=== PATIENT | female | born 1935 | race Caucasian/White ===

== ENCOUNTER 2017-04-27 07:05 | Emergency (ER) | payer MEDICARE ==
[2016-11-26 08:15] VITALS: BMI 38.8
[~2017-04-27 07:05] MED LIST: ANASTROZOLE1 MG PO; DIOVAN HCT 160/1 TA1 PO; FISH OIL 1,0001 CA1 PO; FLUTICASONE PRO16 GM NASAL; HYDROCODONE-APA1 TAB; K-TAB10 MEQ PO; KENALOG 0.1 % O15 GM; MAGNESIUM GLUC500 M1 PO; NEXIUM40 MG PO; NORVASC10 MG PO; SYNTHROID112 MCG PO; ULORIC40 MG PO
== END 2017-04-27 08:14 | disposition home or self-care (01) ==
LOC: D.ER 07:05
DX: M17.11 Unilateral primary osteoarthritis, right knee (principal); M71.21 Synovial cyst of popliteal space [Baker], right knee

== ENCOUNTER → 2017-07-28 17:02 | Outpatient (CLI) | payer MEDICARE ==
[2016-11-26 08:15] VITALS: BMI 38.8
== END | disposition home or self-care (01) ==
LOC: D.MAMMO 10:30
DX: Z85.3 Personal history of malignant neoplasm of breast (principal)

== ENCOUNTER → 2018-01-27 15:47 | Outpatient (CLI) | payer MEDICARE ==
[2016-11-26 08:15] VITALS: BMI 38.8
[~2018-01-27 15:47] MED LIST changes: +ELIQUIS2.5 MG PO; +HYDROCODONE-APA1 TAB PO
== END | disposition home or self-care (01) ==
LOC: D.LABREF 15:47
DX: M17.11 Unilateral primary osteoarthritis, right knee (principal); Z11.8 Encounter for screening for other infectious and parasitic diseases

== ENCOUNTER → 2018-01-27 16:56 | Outpatient (CLI) | payer MEDICARE ==
[2016-11-26 08:15] VITALS: BMI 38.8
== END | disposition home or self-care (01) ==
LOC: D.MAMMO 09:00
DX: R92.8 Other abnormal and inconclusive findings on diagnostic imaging of breast (principal)

== ENCOUNTER 2018-02-02 10:00 | Inpatient (IN) | payer MEDICARE ==
[~2018-02-02] VITALS: Ht 172.7 cm; Wt 113.6 kg
--- NOTE | ~2018-02-02 | OP ---
PATIENT NAME: HARSHA RICH MEDICAL RECORD: [id number] :37 LOCATION:[id number] ADMISSION DATE:02/07/18 SURGEON: YADIEL RIBERA MD DATE OF OPERATION: 02/07/2018 PREOPERATIVE DIAGNOSIS: Degenerative arthritis, right knee. POSTOPERATIVE DIAGNOSIS: Degenerative arthritis, right knee. PROCEDURE: Right total knee arthroplasty. SURGEON: Yadiel Ribera MD ANESTHESIA: General. INTRAOPERATIVE COMPLICATIONS: None. SUMMARY OF PATHOLOGIC FINDINGS: The patient was indeed found to have extensive tricompartmental osteoarthritis consistent with the preoperative diagnosis. OPERATIVE SUMMARY IN DETAIL: After obtaining the appropriate preoperative orthopedic surgery consent as well as anesthetic consultation, evaluation and clearance, the patient was brought to the operating room and placed on the operating table in supine position. After general laryngeal mask airway was administered, tourniquet was placed about the proximal aspect of the right lower extremity. Right lower extremity was then prepped and draped in routine sterile fashion. The leg was elevated and exsanguinated, tourniquet inflated to 350 mmHg. Midline incision was taken down for a paramedian arthrotomy. The paramedian arthrotomy was performed. Patella was everted, distal femur was exposed. Soft tissue excision was done in the usual fashion. Intramedullary guide hole was created for distal femoral intramedullary guided cuts. Having completed this, the entire proximal tibia was exposed. Again, soft tissue excision was done in the usual fashion. Intramedullary guide hole was created for intramedullary-guided cut along the proximal tibia. The cut was then made, balance was checked, sizes were taken and chamfer cuts were made on the distal femur. A size 5 cruciate retaining distal femur trial was then put into place with good fit and fill. Final proximal tibial and distal femoral preparations were made. Size 5 cruciate retaining trial was put into place with the size 5 baseplate and a size 9 trial poly. This was taken through range of motion and final adjustments were made and this felt to be appropriate. Having completed this, the arthritic surface of the patella was excised and preparations were made for a size 9 x 31 patella. At this point, copious pulsatile lavage irrigation was utilized to completely evacuate the cavity of all debris. Bone ends were dried. Final components were cemented into place. All excess cement was removed. After the cement was allowed to harden, the knee was taken through range of motion and found to be stable in all planes. At this point, RT Vitagel from [employer] was deployed into the entire cavity. The paramedian arthrotomy was closed with #2 Ethibond followed shortly by #1 Vicryl, 2-0 Vicryl and skin ramses. Sterile dressings were applied. The patient was awakened and taken to recovery room in stable condition. All final needle and sponge counts were correct. TRANSINT:[id number] Voice Confirmation ID: [id number] DOCUMENT ID: [id number] OPERATIVE REPORT [id number] HARSHA RICH MD, YADIEL CUMMINGS at 1601 CC: [id number] DICTATION DATE: 02/10/18935 YARD OPERATOR: 02/10/18 1133 DIS IN 02/10/18 [facility] [address] [place] [address]
[~2018-02-02 10:00] MED LIST changes: -ELIQUIS2.5 MG PO; -HYDROCODONE-APA1 TAB PO
[2018-02-02 11:30] LABS: BASOPHILS 0.3 % (0-2); EOSINOPHILS 0.6 % (0-7); HEMATOCRIT 38.4 % (36.0-48.0); HEMOGLOBIN 12.1 g/dL (12-16); IMMATURE GRANULOCYTES 0.4 % (0-5); LYMPHOCYTES 14.9 % (15-50); MCH 25.1 pg (26.0-34.0); MCHC 31.5 g/dL (31.0-37.0); MCV 79.7 fL (80.0-100.0); MEAN PLATELET VOLUME 8.7 fL (7.4-10.4); MONOCYTES 9.3 % (2-11); NEUTROPHILS 74.5 % (40-80); RBC 4.82 10x6/uL (4.00-5.40); RDW 15.5 % (11.5-14.5); WBC 11.4 10x3/uL (4.8-10.8)
[2018-02-02 11:33] LABS: PLATELET COUNT 320 10x3/uL (130-400)
[2018-02-02 11:35] LABS: APPEARANCE CLEAR (CLEAR); BILIRUBIN NEGATIVE (NEGATIVE); COLOR YELLOW (YELLOW); GLUCOSE NEGATIVE (NEGATIVE); KETONE NEGATIVE (NEGATIVE); NITRITE NEGATIVE (NEGATIVE); PROTEIN NEGATIVE (NEGATIVE); UROBILINOGEN NORMAL (NORMAL)
[2018-02-02 11:38] LABS: APTT 36.9 SECONDS (22.8-39.4); PROTIME 12.8 SECONDS (11.6-15.0)
[2018-02-02 11:42] LABS: ANION GAP 17.9 mmol/L (8-16); CALCIUM 9.6 mg/dL (8.5-10.1); CREATININE - SERUM 1.1 mg/dL (0.6-1.3); POTASSIUM - SERUM 3.9 mmol/L (3.5-5.1)
[2018-02-07 07:52] VITALS: BP 160/76; BMI 38.1
[2018-02-07 15:50] VITALS: Ht 172.7 cm; Wt 113.6 kg
[2018-02-07 20:44] VITALS: BP 118/48
[2018-02-08 00:44] VITALS: BP 134/64
[2018-02-08 04:30] VITALS: BP 154/69
[2018-02-08 06:36] LABS: HEMATOCRIT 30.6 % (36.0-48.0); HEMOGLOBIN 9.4 g/dL (12-16); MCH 24.3 pg (26.0-34.0); MCHC 30.7 g/dL (31.0-37.0); MCV 79.1 fL (80.0-100.0); MEAN PLATELET VOLUME 8.9 fL (7.4-10.4); RBC 3.87 10x6/uL (4.00-5.40); RDW 15.5 % (11.5-14.5); WBC 9.4 10x3/uL (4.8-10.8)
[2018-02-08 08:19] VITALS: BP 160/63
[2018-02-08 11:47] VITALS: BP 124/56
[2018-02-08 16:03] VITALS: BP 128/58
[2018-02-08 22:18] VITALS: BP 145/54
[2018-02-09 01:28] VITALS: BP 165/69
[2018-02-09 04:29] VITALS: BP 151/66
[2018-02-09 06:27] LABS: HEMATOCRIT 29.2 % (36.0-48.0); MCH 24.3 pg (26.0-34.0); MCHC 30.8 g/dL (31.0-37.0); MCV 78.9 fL (80.0-100.0); MEAN PLATELET VOLUME 8.9 fL (7.4-10.4); RBC 3.7 10x6/uL (4.00-5.40); RDW 15.7 % (11.5-14.5); WBC 10.5 10x3/uL (4.8-10.8)
[2018-02-09 09:16] VITALS: BP 137/58
[2018-02-09 12:38] VITALS: BP 123/56
[2018-02-09 16:10] VITALS: BP 131/49
[2018-02-09 21:09] VITALS: BP 156/64
[2018-02-10 01:38] VITALS: BP 149/60
[2018-02-10 04:42] VITALS: BP 158/68
[2018-02-10] MEDS ORDERED: ELIQUIS2.5 MG PO (08:50)
[2018-02-10] MEDS ORDERED: HYDROCODONE-APA1 TAB PO (08:50)
[2018-02-10 09:37] VITALS: BP 138/47
[2018-02-10 12:20] VITALS: BP 127/48
== END 2018-02-10 13:31 | DRG 470 ==
LOC: D.MS 02-07 07:00 → D.SDCHOLD 02-07 07:00 → D.MS 02-07 14:21
PROVIDERS: Orthopaedic Surgery
PROC: 0SRC0J9 Replacement of Right Knee Joint with Synthetic Substitute, Cemented, Open Approach (ICD-10-PCS; principal; 2018-02-07 10:15)
DX: M17.11 Unilateral primary osteoarthritis, right knee (principal); D62 Acute posthemorrhagic anemia; I10 Essential (primary) hypertension; E03.9 Hypothyroidism, unspecified; K21.9 Gastro-esophageal reflux disease without esophagitis

== ENCOUNTER → 2018-08-05 21:27 | Outpatient (CLI) | payer MEDICARE ==
[2018-02-07 15:50] VITALS: BMI 38.1
[~2018-08-05 21:27] MED LIST changes: +ELIQUIS2.5 MG PO; +HYDROCODONE-APA1 TAB PO
== END | disposition home or self-care (01) ==
LOC: D.MAMMO 10:00
DX: R92.8 Other abnormal and inconclusive findings on diagnostic imaging of breast (principal)

== ENCOUNTER 2019-10-17 08:00 | Outpatient (CLI) | payer MEDICARE ==
[2018-02-07 15:50] VITALS: BMI 38.1
== END 2019-10-17 23:59 | disposition home or self-care (01) ==
LOC: D.MAMMO 08:00 → D.US 10:00 → D.MAMMO 23:59
PROVIDERS: ATTEND Surgery
DX: N63.10 Unspecified lump in the right breast, unspecified quadrant (principal)

== ENCOUNTER 2019-11-07 05:31 | Day surgery (SDC) | payer MEDICARE ==
[~2019-11-07] VITALS: Ht 174 cm; Wt 117.7 kg
--- NOTE | ~2019-11-07 | OP ---
PATIENT NAME: HARSHA RICH MEDICAL RECORD: [id number] :37 LOCATION:[id number] ADMISSION DATE: SURGEON: LEOBARDO CHAMBERLAIN MD DATE OF OPERATION: 11/07/2019 PREOPERATIVE DIAGNOSES: 1. Right breast cancer. 2. History of Paget's disease of the left breast. 3. Hypertension. 4. Hypothyroidism. 5. Gastroesophageal reflux disease. POSTOPERATIVE DIAGNOSES: 1. Right breast cancer. 2. History of Paget's disease of the left breast. 3. Hypertension. 4. Hypothyroidism. 5. Gastroesophageal reflux disease. PROCEDURE: Right simple mastectomy with right axillary sentinel lymph node biopsy. SURGEON: Leobardo Chamberlain MD REPORT OF PROCEDURE: Preoperatively, the patient underwent lymphoscintigraphy. There was minimal uptake in the patient's right axilla. At the start of the case, we used a Neoprobe to inspect the patient's axilla and there was a radio-nucleotide uptake in the tissues. We then mapped out a large ovoid incision around the patient's breast including the nipple areolar complex. This was then opened up using a 10-blade and electrocautery was used to go through the subcutaneous tissues. We then elevated the tissues off of the patient's breast starting medially and going towards the midline of the sternum. We then continued this dissection superiorly up to the clavicle. We then went inferiorly down towards the rectus musculature and then went laterally into the patient's axillary space. Once the breast tissue was completely freed up from the overlying fatty tissue, then it was taken off of the pectoral fascia including the fascia using electrocautery. Any bleeding sources that were found were treated with electrocautery or with 3-0 silk ties. We then took the breast and marked it appropriately and sent it for permanent specimen. We then inspected the patient's axilla and there was noted to be a firm conglomerate of lymph node tissue that was present. This did have some radiotracer uptake. I went ahead and just bluntly removed this conglomerate of firm lymph node and sent it off for permanent specimen. I inspected the remainder of the axilla and could find no radioactive uptake and I could not feel any grossly abnormal lymph nodes throughout. At this point, we irrigated out the patient's wound with sterile water. Any bleeding sources that were found were treated with electrocautery. We then inserted 10 flat BARBARA drains into the tissues through the inferior aspect of the axilla and laid both of these drains out over the pectoral muscles. These were sutured into place with 3-0 nylons. We then reapproximated the subcutaneous tissues using multiple interrupted 3-0 Vicryls and the skin was closed with ramses. COMPLICATIONS: None. CONDITION: Stable. OPERATIVE REPORT [id number] HARSHA RICH ANESTHESIA: General endotracheal. BLOOD LOSS: 50 mL. TRANSINT:[id number] Voice Confirmation ID: [id number] DOCUMENT ID: [id number] LEOBARDO CHAMBERLAIN MD CC: GABE ROSADO DO [id number] DICTATION DATE: 11/07/19 1250 SUPERINTENDENT GAS DISTRIBUTION: 11/07/19 1343 [facility] [address] [place] [address]
[2019-11-07 06:09] LABS: BASOPHILS 0.2 % (0-2); EOSINOPHILS 1.6 % (0-7); HEMATOCRIT 34.5 % (36.0-48.0); HEMOGLOBIN 10.7 g/dL (12-16); IMMATURE GRANULOCYTES 0.3 % (0-5); LYMPHOCYTES 18.7 % (15-50); MCH 24.2 pg (26.0-34.0); MCV 77.9 fL (80.0-100.0); MEAN PLATELET VOLUME 8.5 fL (7.4-10.4); MONOCYTES 12.5 % (2-11); NEUTROPHILS 66.7 % (40-80); RBC 4.43 10x6/uL (4.00-5.40); RDW 17.6 % (11.5-14.5); WBC 6.3 10x3/uL (4.8-10.8)
[2019-11-07 06:21] LABS: PLATELET COUNT 283 10x3/uL (130-400)
[2019-11-07 06:38] LABS: INR 1.08 (0.85-1.17); PROTIME 13.5 SECONDS (11.6-15.0)
[2019-11-07 06:40] LABS: ANION GAP 14.5 mmol/L (8-16); CALCIUM 9.4 mg/dL (8.5-10.1); CARBON DIOXIDE 25.4 mmol/L (21.0-32.0); CREATININE - SERUM 1.1 mg/dL (0.6-1.3); POTASSIUM - SERUM 3.9 mmol/L (3.5-5.1)
[2019-11-07] MEDS ORDERED: PROBIOTIC BLEN1 EACH (06:52)
[2019-11-07 07:24] VITALS: BP 138/73; BMI 39.0
--- NOTE | 2019-11-07 11:20 | NUR ---
TIME OUT PERFORMED AT 0820AM W DR LUNA FOR RT BREAST LYMPHOSCINTIGRAPHY
--- NOTE | 2019-11-07 13:11 | NUR ---
I have reviewed this patient and I concur with the Shift Assessment completed by the Licensed Practical Nurse today this shift.
[2019-11-07 13:33] VITALS: BP 143/62
--- NOTE | 2019-11-07 14:01 | NUR ---
RECEIVED PT FROM RECOVERY C/O PAIN AT A 12. ADMINISTERED PRN PAIN MEDICATION, FAMILY AT BEDSIDE CONTINUE WITH PLAN OF CARE
--- NOTE | 2019-11-07 20:00 | NUR ---
ASSESSMENT PE4R FLOWSHEET. IV PATENT LEFT INFUSAPORT WITH NS AT 50CC'S/HR SITE CLEAR. DRESSING TO RT CHEST AREA C/D/I WITH FARAZ WRAP TO CHEST. BARBARA DRAIN X2 PATENT AND COMPRESSED. UP WITH HELP TO BR VOIDS ASSISTED BACK TO BED.
[2019-11-07 20:33] VITALS: BP 143/62; Ht 174 cm; Wt 117.7 kg
[2019-11-07 20:45] VITALS: BP 119/33
--- NOTE | 2019-11-08 | NUR ---
EYES CLOSED RESPIRATIONS WITH EASE AND UNLABORED.
[2019-11-08 01:21] VITALS: BP 144/50
--- NOTE | 2019-11-08 02:00 | NUR ---
UP WITH HELP TO BR VOIDS FREELY.
[2019-11-08 05:06] VITALS: BP 143/56
[2019-11-08 05:28] LABS: BASOPHILS 0.3 % (0-2); EOSINOPHILS 0.5 % (0-7); HEMATOCRIT 30.8 % (36.0-48.0); HEMOGLOBIN 9.5 g/dL (12-16); IMMATURE GRANULOCYTES 0.4 % (0-5); LYMPHOCYTES 15.1 % (15-50); MCHC 30.8 g/dL (31.0-37.0); MCV 77.8 fL (80.0-100.0); MEAN PLATELET VOLUME 8.8 fL (7.4-10.4); MONOCYTES 12.3 % (2-11); NEUTROPHILS 71.4 % (40-80); RBC 3.96 10x6/uL (4.00-5.40); RDW 17.3 % (11.5-14.5); WBC 7.3 10x3/uL (4.8-10.8)
[2019-11-08 05:56] LABS: CALCIUM 8.4 mg/dL (8.5-10.1); CARBON DIOXIDE 24.8 mmol/L (21.0-32.0); CREATININE - SERUM 0.9 mg/dL (0.6-1.3); POTASSIUM - SERUM 3.8 mmol/L (3.5-5.1)
[2019-11-08 06:26] LABS: PLATELET COUNT 226 10x3/uL (130-400)
[2019-11-08 08:20] VITALS: BP 123/57
[2019-11-08] MEDS ORDERED: HYDROCODON-ACE1 EA10 PO (09:11)
--- NOTE | 2019-11-08 10:29 | NUR ---
PATIENT POST OP DAY 1 FOLLOWING RIGHT MASTECTOMY. DRESSING INTACT WITH FARAZ WRAP. TWO BARBARA DRAINS INTACT WITH SCANT AMOUNT OF SEROUS DRAINAGE. EDUCATED PATIENT AND CAREGIVER ON BARBARA CARE AND DRAINAGE WITH UNDERSTANDING VOICED. ALSO INSTRUCTED ON DOCUMENTING EACH BARBARA WITH OUTPUT. PAIN CONTROLED WITH NORCO. REMOVED HUBBER NEEDLE FROM LEFT CHEST PORT WITH NO BLEEDING NOTED. COVERED WITH OCCLUSIVE DRESSING.
--- NOTE | 2019-11-08 11:21 | NUR ---
DISCHARGE INSTRUCTIONS AND EDUCATION GIVEN WITH PATIENT VOICING UNDERSTANDING. [facility] GIVEN FOR TRANSPORT HOME. PATINET TAKEN BY WHEELCHAIR TO PRIVATE CAR BY VOLUNTEER
--- NOTE | 2019-11-08 11:24 | NUR ---
DISCHARGE INSTRUCTIONS GIVEN TO PATIENT WITH UNDERSTANDING VOICED. PATIENT TAKEN BY WHEELCHAIR VOLUNTEER ASSIST TO PRIVATE CAR
== END 2019-11-08 11:26 | disposition home or self-care (01) ==
LOC: D.OPS 05:31 → D.MS 05:31 → D.OPS 08:00 → D.NM 08:00 → D.MS 13:08 → D.OPS 15:00
PROVIDERS: Anesthesiology; ATTEND Surgery
DX: C50.911 Malignant neoplasm of unspecified site of right female breast (principal); I10 Essential (primary) hypertension; E03.9 Hypothyroidism, unspecified; K21.9 Gastro-esophageal reflux disease without esophagitis

== ENCOUNTER → 2019-12-01 10:33 | Outpatient (CLI) | payer MEDICARE ==
[2019-11-07 20:33] VITALS: BMI 38.9
[~2019-12-01 10:33] MED LIST changes: +HYDROCODON-ACE1 EA10 PO; +PROBIOTIC BLEN1 EACH
== END | disposition home or self-care (01) ==
LOC: D.CT 10:33
PROVIDERS: ATTEND Legal Medicine
DX: C50.912 Malignant neoplasm of unspecified site of left female breast (principal)

== ENCOUNTER → 2020-05-07 18:51 | Outpatient (CLI) | payer MEDICARE ==
[2019-11-07 20:33] VITALS: BMI 38.9
[2020-05-07 19:41] LABS: HEMOGLOBIN 10.7 g/dL (12-16); MCH 23.4 pg (26.0-34.0); MCHC 29.7 g/dL (31.0-37.0); MCV 78.6 fL (80.0-100.0); MEAN PLATELET VOLUME 8.8 fL (7.4-10.4); RBC 4.58 10x6/uL (4.00-5.40); RDW 19.1 % (11.5-14.5); WBC 6.6 10x3/uL (4.8-10.8)
[2020-05-07 20:02] LABS: PLATELET COUNT 387 10x3/uL (130-400)
[2020-05-07 20:11] LABS: ALBUMIN 4.2 g/dL (3.4-5.0); ANION GAP 17.2 mmol/L (8-16); BILIRUBIN - TOTAL 0.3 mg/dL (0.2-1.3); CALCIUM 9.6 mg/dL (8.5-10.1); CREATININE - SERUM 1.1 mg/dL (0.6-1.3); POTASSIUM - SERUM 4.2 mmol/L (3.5-5.1); PROTEIN - SERUM 7.6 g/dL (6.4-8.2)
[2020-05-07 20:48] LABS: EOSINOPHILS 2 % (0-7); LYMPHOCYTES 30 % (15-50); MONOCYTES 9 % (2-11); NEUTROPHILS 59 % (40-80); PLATELET ESTIMATE NORMAL
== END | disposition home or self-care (01) ==
LOC: D.LABREF 18:51
PROVIDERS: ATTEND Legal Medicine
DX: C50.111 Malignant neoplasm of central portion of right female breast (principal)